=== PATIENT | male | born 1960 | race Caucasian/White ===

== ENCOUNTER 2020-02-19 11:05 | Outpatient (CLI) | payer BC, OTHER | END 2020-02-19 11:06 | disposition critical access hospital (66) | LOC: EMS 11:05 | PROVIDERS: ATTEND Surgery | DX: S06.9X9A Unspecified intracranial injury with loss of consciousness of unspecified duration, initial encounter (principal); S69.92XA Unspecified injury of left wrist, hand and finger(s), initial encounter; V23.4XXA Motorcycle driver injured in collision with car, pick-up truck or van in traffic accident, initial encounter; Y92.413 State road as the place of occurrence of the external cause | CPT/HCPCS: A0425; A0429 ==

== ENCOUNTER 2020-02-19 11:19 | Emergency (ER) | payer BC, OTHER ==
[2020-02-19] MEDS ORDERED: SODIUM CHLORIDE 0.9% 1,000 ML IV STA (11:31)
[2020-02-19 11:39] LABS: BASOPHILS # (AUTO) 0.1 10^3/uL (0.0-0.1); BASOPHILS % (AUTO) 1.1 %; EOSINOPHILS # (AUTO) 0.5 10^3/uL (0.0-0.7); EOSINOPHILS % (AUTO) 5.2 %; HGB - HEMOGLOBIN 15.4 g/dL (14.0-18.0); LYMPHOCYTES # (AUTO) 2.5 10^3/uL (1.5-3.5); LYMPHOCYTES % (AUTO) 28.4 %; MEAN CORPUSCULAR HGB CONC 35.1 g/dL (32.0-36.0); MEAN CORPUSCULAR VOLUME 88.3 fL (80.0-94.0); MEAN PLATELET VOLUME 10.4 fL (7.4-11.4); MONOCYTES # (AUTO) 0.7 10^3/uL (0.0-1.0); MONOCYTES % (AUTO) 7.9 %; NEUTROPHILS % (AUTO) 57.2 %; PLT - PLATELET COUNT 231 10^3/uL (130-450); RED BLOOD COUNT 4.97 10^6/uL (4.70-6.10); RED CELL DISTRIBUTION WIDTH 12.1 % (12.0-15.0); WHITE BLOOD COUNT 8.8 x10^3/uL (4.8-10.8)
[2020-02-19 11:54] LABS: ALBUMIN 4.6 g/dL (3.2-5.5); ALBUMIN/GLOBULIN RATIO 1.6 (1.0-2.2); BILIRUBIN,TOTAL 0.9 mg/dL (0.2-1.0); CALCIUM 9.7 mg/dL (8.5-10.3); CREATININE 1.2 mg/dL (0.6-1.2); TOTAL PROTEIN 7.5 g/dL (6.7-8.2)
[2020-02-19] MEDS ORDERED: HYDROmorphone 2 MG/ML VIAL IVP STA ×2 (12:23→14:28)
[2020-02-19] MEDS ORDERED: HYDROmorphone 1 MG/ML CARPUJECT ONE ×2 (12:30→12:59)
[2020-02-19 12:35] LABS: INR 1.2 (0.8-1.2); PT - PROTHROMBIN TIME 13.5 secs (9.9-12.6)
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
[2020-02-19] MEDS ORDERED: ONDANSETRON 4 MG/2 ML VIAL IVP STA (14:06)
[2020-02-19] MEDS ORDERED: MIDAZOLAM 2 MG/2 ML VIAL IVP STA (14:28)
[2020-02-19 15:16] VITALS: BP 118/74
--- NOTE | 2020-02-19 15:42 | XRAY Report ---
PROCEDURE: Wrist 3 View LT INDICATIONS: post-reduction TECHNIQUE: 3 views of the wrist were acquired. COMPARISON: X-ray wrist 02/19/2020 FINDINGS: Bones: There has been interval reduction of the previously identified angulated dislocated, comminute d, intra-articular distal radial fracture, with depression of the radial surface. There is persistent ventral angulation although improved compared to prior exam. Scaphoid view: Not obtained. Soft tissues: No suspicious soft tissue calcifications. IMPRESSION: Interval reduction of comminuted and displaced intra-articular radial fracture. Reviewed by: Silvia aDrnell MD on 02/19/2020 3:41 PM PDT Approved by: Silvia Darnell MD on 02/19/2020 3:41 PM PDT Station ID: [id number]
== END 2020-02-19 15:26 | disposition short-term general hospital (02) ==
LOC: EDUNIT# → ED 11:19
DX: S06.369A Traumatic hemorrhage of cerebrum, unspecified, with loss of consciousness of unspecified duration, initial encounter (principal); S52.572A Other intraarticular fracture of lower end of left radius, initial encounter for closed fracture; V29.9XXA Motorcycle rider (driver) (passenger) injured in unspecified traffic accident, initial encounter; Y93.I9 Activity, other involving external motion
CPT/HCPCS: 25605; 36415; 70450; 72125; 73110; 80053; 83690; 85025; 85610; 96361; 96374; 99152; 99284; 99285; J1170

== ENCOUNTER 2020-02-19 15:18 | Outpatient (CLI) | payer BC, OTHER | END 2020-02-19 15:19 | disposition short-term general hospital (02) | LOC: EMS 15:18 | PROVIDERS: ATTEND Surgery | DX: S06.301A Unspecified focal traumatic brain injury with loss of consciousness of 30 minutes or less, initial encounter (principal); S62.102A Fracture of unspecified carpal bone, left wrist, initial encounter for closed fracture; V23.4XXA Motorcycle driver injured in collision with car, pick-up truck or van in traffic accident, initial encounter | CPT/HCPCS: A0425; A0428 ==